=== PATIENT | male | born 1970 | race Asian ===

== ENCOUNTER 2020-03-08 20:17 | Emergency (ER) | payer SELFPAY ==
[~2020-03-08] VITALS: Ht 160 cm; Wt 63.0 kg
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
[2020-03-09 00:55] VITALS: BP 111/83
== END 2020-03-09 01:02 | disposition home or self-care (01) ==
LOC: ER 20:17
DX: F10.129 Alcohol abuse with intoxication, unspecified (principal); Y90.9 Presence of alcohol in blood, level not specified
CPT/HCPCS: 99283